=== PATIENT | male | born 1985 | race Caucasian/White ===

== ENCOUNTER 2018-01-24 23:25 | Emergency (ER) | payer OTHER ==
[2018-01-24 23:30] VITALS: BP 131/97
--- NOTE | 2018-01-24 23:32 | EDPHY ---
H & P Stated Complaint: R KNEE PAIN/FALL Time Seen by Provider: 01/24/18 23:32 HPI/ROS: HPI CHIEF COMPLAINT: Right knee pain. HISTORY OF PRESENT ILLNESS: This patient very pleasant 32-year-old male, is otherwise healthy with no significant medical history presents emergency room after he [place] the [place] landing on his right knee. This happened hour ago. He is able to bear weight. He has some mild pain to the anterior patellar region. Denies any other areas of injury. He ambulated well throughout the emergency room. Denies any other areas of injury. Denies chest pain or shortness of breath. Main complaint 4/10 right anterior knee pain. Past Medical History: No significant medical history Past Surgical History: No significant surgical history Social History: Smokes tobacco, denies illicit drugs or alcohol. Family History: Noncontributory ROS REVIEW OF SYSTEMS: A comprehensive 10 point review of systems is otherwise negative aside from elements mentioned in the history of present illness. Exam Constitutional appears well nontoxic no acute distress, triage nursing summary reviewed, vital signs reviewed, awake/alert. Eyes normal conjunctivae and sclera, EOMI, PERRLA. HENT normal inspection, atraumatic, moist mucus membranes, no epistaxis, neck supple/ no meningismus, no raccoon eyes. Respiratory clear to auscultation bilaterally, normal breath sounds, no respiratory distress, no wheezing. Cardiovascular rate normal, regular rhythm, no murmur, no edema, distal pulses normal. Gastrointestinal soft, non-tender, no rebound, no guarding, normal bowel sounds, no distension, no pulsatile mass. Genitourinary no CVA tenderness. Musculoskeletal right lower extremity: Distally neurovascular intact good distal pulse, good cap refill. Full range of motion of the right knee. No significant soft tissue swelling. Mild tender palpation over the patella. No laxity negative anterior-posterior drawer sign. Able to bear weight. no midline vertebral tenderness, full range of motion, no calf swelling, no tenderness of extremities, no meningismus, good pulses, neurovascularly intact. Skin pink, warm, & dry, no rash, skin atraumatic. Neurologic awake, alert and oriented x 3, AAOx3, moves all 4 extremities equally, motor intact, sensory intact, CN II-XII intact, normal cerebellar, normal vision, normal speech. Psychiatric normal mood/affect. Heme/Lymph/Immune no lymphadenopathy. Differential Diagnosis: Includes but is not limited to in a particular order knee contusion, knee sprain, soft tissue injury, bony abnormality, bony fracture malalignment, meniscal injury, ligamentous injury. Medical Decision Making: Plan for this patient x-ray right knee, ibuprofen 800 mg for pain control, ice pack. Knee immobilizer. Recommend close follow-up with Orthopedics. Re-evaluation: X-ray the right knee reviewed by myself. No evidence of acute fracture. Patient be placed in knee immobilizer, recommend ice, elevation, anti- inflammatory pain medicine. Orthopedic referral given. He is able to ambulate is neurovascularly intact. Understands return emergency room if develops any worsening symptoms includes worsening pain, questions or concerns. Source: Patient - Personal History Current Tetanus Diphtheria and Acellular Pertussis (TDAP): Yes - Medical/Surgical History Hx Asthma: No Hx Chronic Respiratory Disease: No Hx Diabetes: No Hx Cardiac Disease: No Hx Renal Disease: No Hx Cirrhosis: No Hx Alcoholism: No Hx HIV/AIDS: No Hx Splenectomy or Spleen Trauma: No Other PMH: DENIES - Social History Smoking Status: Heavy smoker Constitutional: Initial Vital Signs Temperature (C) 36.6 C 01/24/18 23:28 Heart Rate 90 01/24/18 23:28 Respiratory Rate 20 01/24/18 23:28 Blood Pressure 131/97 H 01/24/18 23:28 O2 Sat (%) 100 01/24/18 23:28 O2 Delivery Mode Room Air Allergies/Adverse Reactions: Penicillins Allergy (Verified 01/24/18 23:28) Home Medications: Medication Instructions Recorded NK [No Known Home Meds] 01/24/18 Medical Decision Making - Data Points Medications Given: Discontinued Medications Ibuprofen (Motrin) 800 mg PO EDNOW ONE Stop: 01/24/18 23:35 Last Admin: 01/24/18 23:46 Dose: 800 mg Departure - Departure Disposition: Home, Routine, Self-Care Clinical Impression: Knee sprain Qualifiers: Encounter type: initial encounter Involved ligament of knee: other ligament Laterality: right Qualified Code(s): S83.8X1A - Sprain of other specified parts of right knee, initial encounter Condition: Good Instructions: Knee Sprain (ED) Additional Instructions: 1. Recommend that you ice her knee. 2. Anti-inflammatory pain medicine for pain control Tylenol Motrin. 3. Knee immobilizer. 4. Follow up with Orthopedics as needed. Referrals: NONE *PRIMARY CARE P,. [Primary Care Provider] - As per Instructions Kriss Forman MD [Medical Doctor] - As per Instructions
[2018-01-24] MEDS ORDERED: IBUPROFEN 800 MG TAB PO ONE (23:34)
== END 2018-01-25 00:24 | disposition home or self-care (01) ==
DX: S83.8X1A Sprain of other specified parts of right knee, initial encounter (principal); F17.200 Nicotine dependence, unspecified, uncomplicated; W01.0XXA Fall on same level from slipping, tripping and stumbling without subsequent striking against object, initial encounter; Y92.26 Movie house or cinema as the place of occurrence of the external cause